=== PATIENT | female | born 1940 | race Caucasian/White ===

== ENCOUNTER 2020-07-22 15:33 | Inpatient (IN) | payer MEDICARE, OTHER ==
[2020-07-22] MEDS ORDERED: Morphine 4 MG/ML VIAL ONE (16:08)
[2020-07-22 17:38] LABS: #Basophils 0.1 thou/uL (0.0-0.2); #Lymphocytes 1.9 thou/uL (1.20-3.40); #Monocytes 0.9 thou/uL (0.11-0.59); #Neutrophils 10.7 thou/uL (1.40-6.50); %Basophils 0.5 % (0.0-1.0); %Eosinophils 0.2 % (0.0-10.0); %Lymphocytes 13.8 % (21.0-51.0); %Monocytes 6.7 % (0.0-10.0); %Neutrophils 78.9 % (42.0-75.0); Hemoglobin 13.2 g/dL (12.0-16.0); Mean Corpuscular HGB CONC 33.5 g/dL (32.0-36.0); Mean Corpuscular Hemoglobin 28.4 pg (27.0-31.0); Mean Corpuscular Volume 84.7 fL (78.0-98.0); Mean Platelet Volume 8.8 fL (7.4-10.4); Platelet Count 286 thou/uL (130-400); RBC Distribution Width 13.2 % (11.5-14.5); Red Blood Cell (RBC) Count 4.65 mill/uL (4.20-5.40); White Blood Cell (WBC) Count 13.6 thou/uL (4.8-10.8)
[2020-07-22 18:06] LABS: ALT (SGPT) 15 U/L (8-55); AST (SGOT) 19 U/L (5-34); Alkaline Phosphatase 53 U/L (40-110); Anion Gap 16 mmol/L (10-20); BUN (Urea Nitrogen) 13 mg/dL (9.8-20.1); Bilirubin, Total 0.5 mg/dL (0.2-1.2); Calc. Creatinine Clearance 0 mL/min (70-130); Calcium 9.7 mg/dL (7.8-10.44); Carbon Dioxide 21 mmol/L (23-31); Chloride 104 mmol/L (98-107); Globulin 2.7 g/dL (2.4-3.5); Glucose 171 mg/dL (83-110); Potassium 4.5 mmol/L (3.5-5.1); Protein, Total 6.7 g/dL (5.8-8.1); Sodium 136 mmol/L (136-145)
[2020-07-22] MEDS ORDERED: traMADol HCl 50 MG TAB PO PRN (18:13)
[2020-07-22] MEDS: Acetaminophen 325 MG TAB PO SCH ×2 (18:15→23:10)
[2020-07-22] MEDS ORDERED: HumaLOG 300 UNITS/3 ML VIAL SC PRN (18:15)
[2020-07-22] MEDS ORDERED: Dextrose 5% in Water 1,000 ML IV PRN (18:15)
[2020-07-22] MEDS ORDERED: Dextrose 50% Abboject 50 ML SYRINGE SLOW IVP PRN (18:15)
[2020-07-22] MEDS ORDERED: Ondansetron PF 4 MG/2 ML Vial IVP PRN (18:15)
[2020-07-22 19:02] LABS: Anion Gap 15 mmol/L (10-20); BUN (Urea Nitrogen) 13 mg/dL (9.8-20.1); Calc. Creatinine Clearance 0 mL/min (70-130); Calcium 9.9 mg/dL (7.8-10.44); Carbon Dioxide 21 mmol/L (23-31); Chloride 104 mmol/L (98-107); Glucose 170 mg/dL (83-110); Magnesium 1.4 mg/dL (1.6-2.6); Phosphorus 3.8 mg/dL (2.3-4.7); Potassium 4.2 mmol/L (3.5-5.1); Sodium 136 mmol/L (136-145)
[2020-07-22 19:44] VITALS: BMI 25.7
[2020-07-22] MEDS: Gabapentin 100 MG CAP PO SCH (20:35)
[2020-07-22] MEDS: Senokot S 8.6-50 MG TAB PO SCH (20:36)
[2020-07-22] MEDS ORDERED: Famotidine/PF 20 mg/2ml Vial SLOW IVP SCH (21:00)
[2020-07-22] MEDS: traMADol HCl 50 MG TAB PO SCH (23:11)
[2020-07-23] MEDS ORDERED: Lactated Ringer's 1,000 ML IV SCH (00:15)
[2020-07-23 00:57] LABS: SARS-CoV-2 NAA Rapid Test Not Detected (NotDetected)
[2020-07-23] MEDS: traMADol HCl 50 MG TAB PO SCH (05:06)
[2020-07-23] MEDS: Levothyroxine Sodium 75 MCG TAB PO SCH (05:06)
[2020-07-23] MEDS: Acetaminophen 325 MG TAB PO SCH ×2 (05:07→13:01)
[2020-07-23 05:48] LABS: #Basophils 0.1 thou/uL (0.0-0.2); #Eosinphils 0.4 thou/uL (0.0-0.7); #Lymphocytes 2.8 thou/uL (1.20-3.40); #Monocytes 0.7 thou/uL (0.11-0.59); #Neutrophils 5.8 thou/uL (1.40-6.50); %Basophils 0.7 % (0.0-1.0); %Eosinophils 4.5 % (0.0-10.0); %Lymphocytes 28.5 % (21.0-51.0); %Monocytes 7.2 % (0.0-10.0); %Neutrophils 59.1 % (42.0-75.0); Hemoglobin 11.5 g/dL (12.0-16.0); Mean Corpuscular HGB CONC 33.2 g/dL (32.0-36.0); Mean Corpuscular Hemoglobin 28.2 pg (27.0-31.0); Mean Corpuscular Volume 85.1 fL (78.0-98.0); Mean Platelet Volume 9.1 fL (7.4-10.4); Platelet Count 259 thou/uL (130-400); RBC Distribution Width 13.3 % (11.5-14.5); Red Blood Cell (RBC) Count 4.06 mill/uL (4.20-5.40); White Blood Cell (WBC) Count 9.7 thou/uL (4.8-10.8)
[2020-07-23 05:54] LABS: Hemoglobin A1c 8.3 % (4.0-6.0)
[2020-07-23 05:56] LABS: PTT 28.1 sec (22.9-36.1); Prothrombin Time 13.1 sec (12.0-14.7)
[2020-07-23] MEDS ORDERED: Magnesium Sulfate 3 GM in Sodium Chloride 0.9% 100 ML IV SCH (10:00)
[2020-07-23 10:32] LABS: #Basophils 0.1 thou/uL (0.0-0.2); #Eosinphils 0.5 thou/uL (0.0-0.7); #Lymphocytes 2.5 thou/uL (1.20-3.40); #Monocytes 0.7 thou/uL (0.11-0.59); #Neutrophils 5.2 thou/uL (1.40-6.50); %Basophils 0.8 % (0.0-1.0); %Eosinophils 5.6 % (0.0-10.0); %Lymphocytes 28.2 % (21.0-51.0); %Monocytes 7.6 % (0.0-10.0); %Neutrophils 57.8 % (42.0-75.0); Hemoglobin 11.8 g/dL (12.0-16.0); Mean Corpuscular HGB CONC 34.4 g/dL (32.0-36.0); Mean Corpuscular Hemoglobin 29.3 pg (27.0-31.0); Mean Corpuscular Volume 85.2 fL (78.0-98.0); Mean Platelet Volume 8.7 fL (7.4-10.4); Platelet Count 236 thou/uL (130-400); RBC Distribution Width 13.3 % (11.5-14.5); Red Blood Cell (RBC) Count 4.02 mill/uL (4.20-5.40)
[2020-07-23] MEDS: Amlodipine 5 MG TAB PO SCH (12:59)
[2020-07-23] MEDS: Gabapentin 100 MG CAP PO SCH ×3 (13:00→20:46)
[2020-07-23] MEDS: Escitalopram Oxalate 10 mg Tablet PO SCH (13:00)
[2020-07-23] MEDS: Polyethylene Glycol 3350 17 GM Packet PO SCH (13:00)
[2020-07-23] MEDS ORDERED: CEFAZOLIN 2 GM in Premix Bag 1 BAG IVPB SCH (13:00)
[2020-07-23] MEDS: Famotidine 20 MG TAB PO SCH (13:00)
[2020-07-23] MEDS: Senokot S 8.6-50 MG TAB PO SCH ×2 (13:00→20:47)
[2020-07-23] MEDS: Acetaminophen/Codeine 30-300mg Tablet PO SCH ×2 (13:01→18:09)
[2020-07-23] MEDS ORDERED: Fentanyl 100 MCG/2 ML VIAL ONE ×4 (13:31→16:42)
[2020-07-23] MEDS ORDERED: Esmolol 100 MG/10 ML VIAL ONE (14:13)
[2020-07-23] MEDS ORDERED: Labetalol HCl 100 MG/20 ML VIAL ONE (14:13)
[2020-07-23] MEDS ORDERED: ePHEDrine Sulfate 50 MG/10 ML VIAL ONE (14:13)
[2020-07-23] MEDS ORDERED: Lidocaine 1% PF 5 ML VIAL ONE (14:13)
[2020-07-23] MEDS ORDERED: Glycopyrrolate 0.2 MG/ML 5 ML SYRINGE ONE (14:13)
[2020-07-23] MEDS ORDERED: Rocuronium Bromide 10 MG/ML (10ML VIAL) ONE (14:13)
[2020-07-23] MEDS ORDERED: PROPOFOL 200 MG/20 ML VIAL ONE (14:13)
[2020-07-23] MEDS ORDERED: Promethazine HCl 25 MG/ML VIAL SLOW IVP PRN (15:17)
[2020-07-23] MEDS ORDERED: Ondansetron HCl/PF 4 MG/2 ML Vial IVP PRN (15:17)
[2020-07-23] MEDS ORDERED: Promethazine HCl 25 MG/ML VIAL IM PRN (15:17)
[2020-07-23] MEDS: metFORMIN 500 MG TAB PO SCH ×2 (18:09→18:14)
[2020-07-23] MEDS ORDERED: Dextrose 50% Abboject 50 ML SYRINGE SLOW IVP PRN (20:45)
[2020-07-23] MEDS ORDERED: Dextrose 5% in Water 1,000 ML IV PRN (20:45)
[2020-07-23] MEDS: Enoxaparin Sodium 40 MG/0.4 ML SYRINGE SC SCH (20:47)
[2020-07-23] MEDS: CEFAZOLIN 2 GM in Premix Bag 1 BAG IVPB SCH (20:47)
[2020-07-23] MEDS ORDERED: Lantus 1000 UNITS/10 ML VIAL SC SCH (21:00)
[2020-07-24] MEDS: Acetaminophen 325 MG TAB PO SCH ×6 (00:25→23:35)
[2020-07-24] MEDS: Acetaminophen/Codeine 30-300mg Tablet PO SCH ×5 (00:42→23:34)
[2020-07-24] MEDS: Levothyroxine Sodium 75 MCG TAB PO SCH (05:19)
[2020-07-24] MEDS: CEFAZOLIN 2 GM in Premix Bag 1 BAG IVPB SCH ×2 (05:20→14:10)
[2020-07-24 05:56] LABS: #Lymphocytes 1.2 thou/uL (1.20-3.40); #Monocytes 0.5 thou/uL (0.11-0.59); #Neutrophils 7.9 thou/uL (1.40-6.50); %Basophils 0.1 % (0.0-1.0); %Eosinophils 0.2 % (0.0-10.0); %Lymphocytes 12.1 % (21.0-51.0); %Monocytes 5.6 % (0.0-10.0); Hemoglobin 11.9 g/dL (12.0-16.0); Mean Corpuscular HGB CONC 32.6 g/dL (32.0-36.0); Mean Corpuscular Hemoglobin 28.5 pg (27.0-31.0); Mean Corpuscular Volume 87.4 fL (78.0-98.0); Mean Platelet Volume 9.4 fL (7.4-10.4); Platelet Count 248 thou/uL (130-400); RBC Distribution Width 13.2 % (11.5-14.5); Red Blood Cell (RBC) Count 4.16 mill/uL (4.20-5.40); White Blood Cell (WBC) Count 9.6 thou/uL (4.8-10.8)
[2020-07-24 06:21] LABS: Anion Gap 13 mmol/L (10-20); BUN (Urea Nitrogen) 12 mg/dL (9.8-20.1); Calc. Creatinine Clearance 54 mL/min (70-130); Calcium 8.4 mg/dL (7.8-10.44); Carbon Dioxide 25 mmol/L (23-31); Chloride 101 mmol/L (98-107); Glucose 229 mg/dL (83-110); Magnesium 1.9 mg/dL (1.6-2.6); Phosphorus 3.5 mg/dL (2.3-4.7); Potassium 4.6 mmol/L (3.5-5.1); Sodium 134 mmol/L (136-145)
[2020-07-24] MEDS: metFORMIN 500 MG TAB PO SCH (08:44)
[2020-07-24] MEDS: Senokot S 8.6-50 MG TAB PO SCH ×2 (09:28→20:47)
[2020-07-24] MEDS: Escitalopram Oxalate 10 mg Tablet PO SCH (09:28)
[2020-07-24] MEDS: Amlodipine 5 MG TAB PO SCH (09:28)
[2020-07-24] MEDS: Famotidine 20 MG TAB PO SCH (09:28)
[2020-07-24] MEDS: Gabapentin 100 MG CAP PO SCH ×3 (09:29→20:46)
[2020-07-24] MEDS: Polyethylene Glycol 3350 17 GM Packet PO SCH (09:29)
[2020-07-24] MEDS: HumaLOG 300 UNITS/3 ML VIAL SC PRN ×2 (12:08→17:33)
[2020-07-24] MEDS: Enoxaparin Sodium 40 MG/0.4 ML SYRINGE SC SCH (20:46)
[2020-07-25] MEDS: Levothyroxine Sodium 75 MCG TAB PO SCH (05:31)
[2020-07-25] MEDS: Acetaminophen 325 MG TAB PO SCH ×3 (05:31→17:39)
[2020-07-25] MEDS: Acetaminophen/Codeine 30-300mg Tablet PO SCH ×3 (05:31→17:39)
[2020-07-25] MEDS: Escitalopram Oxalate 10 mg Tablet PO SCH (09:28)
[2020-07-25] MEDS: Famotidine 20 MG TAB PO SCH (09:28)
[2020-07-25] MEDS: Senokot S 8.6-50 MG TAB PO SCH (09:28)
[2020-07-25] MEDS: Polyethylene Glycol 3350 17 GM Packet PO SCH (09:29)
[2020-07-25] MEDS: Gabapentin 100 MG CAP PO SCH ×2 (09:29→15:44)
[2020-07-25] MEDS: Amlodipine 5 MG TAB PO SCH (09:29)
[2020-07-25] MEDS ORDERED: metFORMIN 500 MG TAB PO SCH ×2 (12:30→21:00)
[2020-07-25] MEDS: HumaLOG 300 UNITS/3 ML VIAL SC PRN (12:30)
[2020-07-25] MEDS ORDERED: Lactated Ringer's 500 ML IV SCH (14:30)
[2020-07-25 19:11] VITALS: BP 107/70; TEMP 97.9
== END 2020-07-25 19:00 | DRG 482 ==
LOC: ERS 15:33 → SURG A 18:15
PROVIDERS: ADMIT Specialist; ATTEND Specialist
PROC: 0QS734Z Reposition Left Upper Femur with Internal Fixation Device, Percutaneous Approach (ICD-10-PCS; principal; 2020-07-23)
DX: S72.012A Unspecified intracapsular fracture of left femur, initial encounter for closed fracture (principal); I10 Essential (primary) hypertension; E78.5 Hyperlipidemia, unspecified; E03.9 Hypothyroidism, unspecified; Z20.822 Contact with and (suspected) exposure to COVID-19; W18.09XA Striking against other object with subsequent fall, initial encounter; E11.65 Type 2 diabetes mellitus with hyperglycemia; R41.0 Disorientation, unspecified; F22 Delusional disorders; I49.3 Ventricular premature depolarization; Z90.89 Acquired absence of other organs; Z90.710 Acquired absence of both cervix and uterus; Z88.8 Allergy status to other drugs, medicaments and biological substances; Y93.H2 Activity, gardening and landscaping; Y92.007 Garden or yard of unspecified non-institutional (private) residence as the place of occurrence of the external cause
CPT/HCPCS: 36415; 36416; 71045; 76000; 80048; 80053; 83036; 83735; 84100; 84484; 85025; 85610; 85730; 93005; 93010; 96374; C1713; C1769; G0390; J0690; J1650; J1815; J2270; J2704; J3010; J3475; J3490; S0028; U0002; U0005